=== PATIENT | female | born 1960 | race Caucasian/White ===

== ENCOUNTER → 2016-06-20 | Outpatient (CLI) | payer MEDICAID ==
--- NOTE | 2016-06-21 10:13 | MM ---
Reason for exam: screening (asymptomatic). Last mammogram was performed 8 months ago. History: Patient is postmenopausal and history of other cancer. Took hormonal contraceptives for 10 years beginning at age 20. Physical Findings: A clinical breast exam by your physician is recommended on an annual basis and results should be correlated with mammographic findings. MG 3D Screening Mammo W/Cad Bilateral CC and MLO view(s) were taken. Prior study comparison: October 27, 2015, right breast MG 3d diag mammo w/cad RT. February 11, 2015, bilateral MG screening mammo w CAD. The breast tissue is extremely dense which could obscure a lesion on mammography. Finding: There are typically benign round, linear, grouped/clustered calcifications in the upper outer quadrant, posterior, subareolar position of the left breast and benign round calcifications in the left breast diffusely. There is a chronic nodularity in the right breast. ASSESSMENT: Benign, BI-RAD 2 RECOMMENDATION: Routine screening mammogram of both breasts in 1 year.
== END | disposition home or self-care (01) ==
LOC: RADMAMWWP 11:46
PROVIDERS: ATTEND Obstetrics & Gynecology
DX: Z12.31 Encounter for screening mammogram for malignant neoplasm of breast (principal)
CPT/HCPCS: 77063; G0202

== ENCOUNTER → 2017-07-26 | Outpatient (CLI) | payer MEDICAID ==
--- NOTE | 2017-07-26 14:04 | MM ---
Reason for exam: screening (asymptomatic). Last mammogram was performed 1 year and 1 month ago. History: Patient is postmenopausal and history of other cancer. Took hormonal contraceptives for 10 years beginning at age 20. Physical Findings: A clinical breast exam by your physician is recommended on an annual basis and results should be correlated with mammographic findings. MG Screening Mammo w CAD Bilateral CC and MLO view(s) were taken. Prior study comparison: June 20, 2016, bilateral MG 3d screening mammo w/cad. October 27, 2015, right breast MG 3d diag mammo w/cad RT. The breast tissue is extremely dense which could obscure a lesion on mammography. Finding: There are typically benign round calcifications in both breasts. There is a chronic nodularity in the right breast. There is no discrete abnormality. ASSESSMENT: Benign, BI-RAD 2 RECOMMENDATION: Routine screening mammogram of both breasts in 1 year.
== END | disposition home or self-care (01) ==
LOC: RADMAMWWP 07:35
PROVIDERS: ATTEND Obstetrics & Gynecology
DX: Z12.31 Encounter for screening mammogram for malignant neoplasm of breast (principal)
CPT/HCPCS: 77067

== ENCOUNTER 2018-03-29 07:01 | Day surgery (SDC) | payer MEDICAID ==
[2018-03-27 17:32] VITALS: BMI 28.3
[2018-03-29 07:16] VITALS: TEMP 98.5
[2018-03-29] MEDS: LACTATED RINGERS 1,000 ML IV SCH ×2 (07:27→07:55)
[2018-03-29] MEDS ORDERED: PROPOFOL 10 MG/ML 20 ML VIAL IV ONE (07:56)
[2018-03-29] MEDS ORDERED: LIDOCAINE 1% INJ 10MG/ML (20 ML MDV) ONE (07:56)
--- NOTE | 2018-03-29 08:12 | P.PCN ---
Date of Procedure: 03/29/18 Procedure(s) Performed: BRIEF HISTORY: Patient is a 58-year-old pleasant white female, scheduled for an elective colonoscopy as a part of evaluation of prior history of colon polyps. Last coloscopy was 7 years ago and was noted to have an adenoma. PROCEDURE PERFORMED: Colonoscopy. PREOPERATIVE DIAGNOSIS: History of colon polyps. IV sedation per Anesthesia. PROCEDURE: After informed consent was obtained, the patient, was brought into the endoscopy unit. IV sedation was administered by Anesthesia under continuous monitoring. Digital rectal examination was normal. Initially the Olympus CF- 160 flexible video colonoscope was then inserted in the rectum, gradually advanced into the cecum without any difficulty. Careful examination was performed as the scope was gradually being withdrawn. Ileocecal valve and the appendiceal orifice were visualized and appeared normal. Prep was excellent. Mucosa of the cecum, ascending colon, transverse colon, descending colon, sigmoid colon, and rectum appeared normal. Retroflexion was performed in the rectum and no lesions were seen. The patient tolerated the procedure well. IMPRESSION: Normal-appearing colon from rectum to cecum with no evidence of colorectal neoplasia. RECOMMENDATIONS: Findings of this examination were discussed with the patient as well as her family. She was advised to have a repeat surveillance coloscopy in 5 years..
[2018-03-29 08:34] VITALS: BP 111/77; PULSE 65; RESP 18
== END 2018-03-29 08:51 | disposition home or self-care (01) ==
LOC: ORWHC2ENDO 07:01
PROVIDERS: ATTEND Internal Medicine Gastroenterology
DX: Z12.11 Encounter for screening for malignant neoplasm of colon (principal); Z86.010 Personal history of colon polyps
CPT/HCPCS: J2001; J2704; G0105; 45378

== ENCOUNTER → 2018-10-28 | Outpatient (CLI) | payer MEDICAID ==
--- NOTE | 2018-10-30 08:05 | MM ---
Reason for exam: screening (asymptomatic). Last mammogram was performed 1 year and 3 months ago. History: Patient is postmenopausal and history of other cancer. Took hormonal contraceptives for 10 years beginning at age 20. Physical Findings: A clinical breast exam by your physician is recommended on an annual basis and results should be correlated with mammographic findings. MG 3D Screening Mammo W/Cad Bilateral CC and MLO view(s) were taken. Prior study comparison: July 26, 2017, bilateral MG screening mammo w CAD. June 20, 2016, bilateral MG 3d screening mammo w/cad. The breast tissue is heterogeneously dense. This may lower the sensitivity of mammography. No significant changes when compared with prior studies. ASSESSMENT: Negative, BI-RAD 1 RECOMMENDATION: Routine screening mammogram of both breasts in 1 year.
== END | disposition home or self-care (01) ==
LOC: RADMAMWWP 15:36
PROVIDERS: ATTEND Obstetrics & Gynecology
DX: Z12.31 Encounter for screening mammogram for malignant neoplasm of breast (principal)
CPT/HCPCS: 77063; 77067

== ENCOUNTER → 2019-07-04 | Outpatient (CLI) | payer MEDICAID ==
--- NOTE | 2019-07-04 07:35 | MR ---
EXAMINATION TYPE: MR knee LT wo con DATE OF EXAM: 07/04/2019 COMPARISON: Bilateral knee x-rays July 02, 2019 HISTORY: Left knee pain per order. Pain and locking for palpation worse over last few months. TECHNIQUE: Multiplanar, multisequence images of the knee is performed without IV contrast. FINDINGS: MEDIAL MENISCUS: Posterior horn shows horizontal increased signal image 8 extending centrally to the superior surface. Anterior horn is intact. LATERAL MENISCUS: Anterior horn is intact without tear. There is oblique and slightly globular increa sed signal posterior horn does not extend to articular surface. CRUCIATE LIGAMENTS: The anterior and posterior cruciate ligaments are intact and unremarkable. COLLATERAL LIGAMENTS: The medial collateral ligament and lateral collateral ligament complex are inta ct. Mild fluid signal surrounds medial collateral ligament fibers. EXTENSOR MECHANISM: Visualized quadriceps and patellar tendons are intact. EFFUSION: There is small suprapatellar joint effusion. POPLITEAL CYST: Small to moderate size popliteal/yeager cyst measuring 4.3 cm sagittal image 23. TRICOMPARTMENT SPACES: Moderate to advanced narrowing and spurring patellofemoral compartment. Mild t o moderate spurring medial and lateral tibiofemoral compartments with joint space is fairly well-main tained at these levels. CARTILAGE: Significant chondromalacia patella with marked thinning of the articular cartilage along p osterior patellar pole, areas of full-thickness loss are seen inferiorly. BONE MARROW SIGNAL: Some subchondral cystic change in the central distal femur and small area of bone marrow edema in the central aspect of the tibial plateau. OTHER: No additional significant abnormality is appreciated. IMPRESSION: 1. Moderate to advanced patellofemoral joint arthropathy as detailed above. 2. More mild to moderate degenerative changes medial and lateral tibiofemoral compartments. 3. Small suprapatellar joint effusion. 4. Small to moderate size popliteal cyst. 5. Mild MCL sprain injury. 6. Intrasubstance tear posterior horn of lateral meniscus. 7. Full-thickness horizontal tear posterior horn medial meniscus.
== END | disposition home or self-care (01) ==
LOC: RADMRIMAIN 06:29
PROVIDERS: ATTEND Orthopaedic Surgery
DX: M17.12 Unilateral primary osteoarthritis, left knee (principal); M71.22 Synovial cyst of popliteal space [Baker], left knee; S83.412A Sprain of medial collateral ligament of left knee, initial encounter; S83.282A Other tear of lateral meniscus, current injury, left knee, initial encounter; S83.242A Other tear of medial meniscus, current injury, left knee, initial encounter

== ENCOUNTER → 2019-09-18 | Outpatient (CLI) | payer MEDICAID ==
[2019-09-18 10:14] LABS: Basophils % (A) 1 %; Eosinophils # (A) 0.1 k/uL (0-0.7); Eosinophils % (A) 2 %; HCT 45.7 % (34.0-46.0); HGB 14.5 gm/dL (11.4-16.0); Lymphocytes # (A) 1.8 k/uL (1.0-4.8); Lymphocytes % (A) 23 %; MCH 28.3 pg (25.0-35.0); MCHC 31.8 g/dL (31.0-37.0); MCV 88.8 fL (80.0-100.0); Mean Platelet Volume 7.1; Monocytes # (A) 0.4 k/uL (0-1.0); Monocytes % (A) 5 %; Neutrophils # (A) 5.4 k/uL (1.3-7.7); Neutrophils % (A) 69 %; Platelet Count 336 k/uL (150-450); RBC 5.14 m/uL (3.80-5.40); WBC 7.8 k/uL (3.8-10.6)
[2019-09-18 10:24] LABS: Potassium 4.8 mmol/L (3.5-5.1)
== END | disposition home or self-care (01) ==
LOC: LABPAT 08:33
PROVIDERS: ATTEND Orthopaedic Surgery
DX: Z01.818 Encounter for other preprocedural examination (principal); M23.92 Unspecified internal derangement of left knee
CPT/HCPCS: 80051; 85025; 93005

== ENCOUNTER → 2019-09-25 | Outpatient (CLI) | payer MEDICAID | END | disposition home or self-care (01) | LOC: LABWHC1 13:18 | PROVIDERS: ATTEND Orthopaedic Surgery | DX: Z11.59 Encounter for screening for other viral diseases (principal) ==

== ENCOUNTER 2019-09-29 11:50 | Day surgery (SDC) | payer MEDICAID ==
[2019-09-25 12:09] VITALS: BMI 31.6
--- NOTE | 2019-09-28 15:32 | HP ---
HISTORY AND PHYSICAL REASON FOR ADMISSION: Surgery is scheduled for 09/29/2019. Nishi Powers is a 59-year-old patient seen with progressive left knee pain. We discussed options. She elected to proceed with arthroscopy. Consent was obtained. PAST MEDICAL HISTORY: Noncontributory. SURGICAL HISTORY: Tubal ligation. D and C, bunionectomy, elbow surgery. DAILY MEDICATIONS: None. ALLERGIES: None. SOCIAL HISTORY: Denies tobacco use. PHYSICAL EXAMINATION: Evaluation of the left knee: Range of motion is 0-130. She has a mild effusion. There is tenderness noted along the medial joint line. There is tender along the lateral joint lines. Positive medial Whit's. Positive lateral Whit's. Ligaments stable. Hip rotation without pain. Her distal neurovascular exam is intact. RADIOGRAPHS: Radiographs of the left knee revealed moderate osteoarthritis. An MRI of left knee revealed medial meniscal tear, osteoarthritis, and popliteal cyst. IMPRESSION: 1. Internal derangement, left knee with medial meniscal tear. 2. Left knee osteoarthritis. PLAN: Left knee arthroscopy with partial meniscectomy, partial synovectomy and debridement. Surgery 09/29/2019. MMODL / IJN: [id number] /
[~2019-09-29 11:50] MED LIST: DEXAMETHASONE SOD PHOSPHATE 10 MG/ML 1 ML VIAL IV ONE; LACTATED RINGERS 1,000 ML IV SCH; MIDAZOLAM 2 MG/2 ML VIAL IV PRN; ONDANSETRON 4 MG/2 ML VIAL IVP ONE
[2019-09-29 12:22] VITALS: RESP 16; TEMP 97
[2019-09-29] MEDS ORDERED: SCOPOLAMINE 1.5MG/72HR PATCH TRANSDERM ONE (12:22)
[2019-09-29] MEDS ORDERED: fentaNYL (PF) 50 MCG/ML 2 ML AMP ONE (13:50)
[2019-09-29] MEDS ORDERED: MIDAZOLAM 2 MG/2 ML VIAL ONE (13:50)
[2019-09-29] MEDS ORDERED: PROPOFOL 10 MG/ML 20 ML VIAL IV ONE (13:50)
[2019-09-29] MEDS ORDERED: LIDOCAINE 1% INJ 10MG/ML (20 ML MDV) ONE (13:50)
--- NOTE | 2019-09-29 14:51 | P.OP ---
Date of Procedure: 09/29/19 Preoperative Diagnosis: Internal derangement left knee Postoperative Diagnosis: 1. Tear medial meniscus left knee 2. Grade 4 chondromalacia medial femoral condyle left knee 3. Partial ACL tear left knee 4. Reactive synovitis medial, lateral and suprapatellar compartments left knee Procedure(s) Performed: 1. Arthroscopic partial medial meniscectomy left knee 2. Arthroscopic chondroplasty medial femoral condyle left knee 3. Arthroscopic microfracture medial femoral condyle left knee 4. Arthroscopic debridement partial ACL tear left knee 5. Arthroscopic partial synovectomy medial, lateral and suprapatellar compartments left knee Anesthesia: MACHOA, local Surgeon: Ananda Lee Estimated Blood Loss (ml): 10 Pathology: none sent Condition: stable Disposition: PACU Indications for Procedure: 59-year-old patient seen with progressive left knee pain. After treatment options were discussed, she elected to proceed with arthroscopy. Operative Findings: see description of procedure Description of Procedure: Patient was taken to the operative suite. Patient underwent a general anesthetic by the department of anesthesia. Patient was given preoperative antibiotics. The left lower extremity was placed in a well-padded arthroscopic leg byers. The left leg was prepped and draped in the normal sterile orthopedic fashion. A lateral parapatellar incision was made. Trochars were inserted. Arthroscopy was initiated. Suprapatellar pouch revealed diffuse thick reactive synovitis. The patellofemoral joint appeared to articulate congruently. There was grade 2/3 chondromalacia of both the patella and the femoral sulcus. There was some diffuse thick reactive synovitis throughout the super patellar compartment.. The scope was guided into the medial gutter. No loose bodies or plica were identified. The scope was then guided into the medial compartment. A medial parapatellar incision was made. Trocar inserted followed by probe. There was a posterior horn type tear of the medial meniscus. There were grade 3/4 chondromalacia changes of the medial femoral condyle with some fairly large osteochondral flap tears. There was reactive synovitis anteriorly. I performed a partial medial meniscectomy. I performed a chondroplasty of the medial femoral condyle getting down to stable osteochondral tissue. I performed a partial synovectomy decompressing thick reactive synovitis. There was area of exposed bone weightbearing surface medial femoral condyle measuring 1 cm in diameter. I performed a microfracture in the central portion with area penetrating the bone with resultant bleeding at the microfracture site. The residual osteochondral surface was again probed and found to be stable. Scope and probe were then guided into the intercondylar notch. The ACL was identified and was noted to be stable or less some partial tearing along the lateral side with some of the fibers ending up the lateral compartment. Motorize shaver was introduced and I debrided that down to stable tissue. Residual ACL was stable.. The scope and probe were then guided into lateral compartment. There was some fraying in the midbody area and lateral meniscus. The lateral femoral condyle and tibial plateau were stable. There was some reactive synovitis anteriorly. I debrided the frayed area midbody lateral meniscus motorize shaver. I performed a partial synovectomy decompressing reactive synovitis. Shaver was removed. There was good decompression of the synovitis. The scope was in guided back into the suprapatellar compartment. I introduced a motorized shaver into the super compartment. I debrided some piecemeal fragments of meniscus I encountered. I performed a partial synovectomy decompressing reactive synovitis. The shaver was removed. There was good decompression of synovitis. Instruments were now removed from the joint. The joint was infiltrated with .25% Marcaine. Steri- Strips were applied to the portal sites. Sterile dressings were applied. The patient was placed into a JOSHUA hose. No tourniquet was utilized. The patient was awakened, transferred to a bed and taken to recovery stable satisfactory condition.
[2019-09-29] MEDS: HYDROmorphone 0.5 MG/0.5 ML SYRINGE IVP PRN ×2 (15:06→15:18)
[2019-09-29 15:52] VITALS: BP 123/81; PULSE 71
== END 2019-09-29 16:47 | disposition home or self-care (01) ==
LOC: OR 11:50
PROVIDERS: ATTEND Orthopaedic Surgery
DX: M23.222 Derangement of posterior horn of medial meniscus due to old tear or injury, left knee (principal); M94.262 Chondromalacia, left knee; S83.512A Sprain of anterior cruciate ligament of left knee, initial encounter; M65.862 Other synovitis and tenosynovitis, left lower leg; M22.42 Chondromalacia patellae, left knee; M17.12 Unilateral primary osteoarthritis, left knee; Z98.51 Tubal ligation status; Z98.890 Other specified postprocedural states; Z85.828 Personal history of other malignant neoplasm of skin; Z86.010 Personal history of colon polyps; X58.XXXA Exposure to other specified factors, initial encounter
CPT/HCPCS: 29881; 29879; 29876; J2250; J1100; J2405; J2001; J3010; J2704; J1170

== ENCOUNTER → 2020-01-26 | Outpatient (CLI) | payer MEDICAID ==
[2020-01-26 11:03] LABS: Chol/HDL Ratio 3.46; LDL Cholesterol,Calculated 97.6 mg/dL (0.0-131.0); VLDL Calculation 25.4 mg/dL (5.00-40.00)
== END | disposition home or self-care (01) ==
LOC: LABWHC1 07:42
PROVIDERS: ATTEND Obstetrics & Gynecology
DX: Z00.00 Encounter for general adult medical examination without abnormal findings (principal)
CPT/HCPCS: 36415; 80061; 82947; 84439; 84443

== ENCOUNTER → 2020-02-18 | Outpatient (CLI) | payer MEDICAID ==
--- NOTE | 2020-02-18 22:21 | BD ---
EXAMINATION TYPE: Axial Bone Density DATE OF EXAM: 02/18/2020 COMPARISON: 02/11/2015 CLINICAL HISTORY: Postmenopausal female. Height: 64.5 IN Weight: 189 LBS FRAX RISK QUESTIONS: Family History (Parent hip fracture): YES MOTHER RISK FACTORS HISTORY OF: Family History of Osteoporosis: YES MOTHER Active: YES Postmenopausal woman: AGE 52 EXAM MEASUREMENTS: Bone mineral densitometry was performed using the Valuation App System. Bone mineral density as measured about the Lumbar spine is: ----- L1-L4(G/cm2): 1.092 T Score Values are as follows: ----- L2: -1.6 ----- L3: -0.5 ----- L4: -0.6 ----- L1-L4: -0.7 Bone mineral density has: Increased 1.2% since study of: 02/11/2015 Bone mineral density about the R hip (g/cm2): 0.789 Bone mineral density about the L hip (g/cm2): 0.763 T Score values are as follows: -----R Neck: -1.8 -----L Neck: -2.0 -----R Total: -1.5 -----L Total: -2.0 Bone mineral density has: Decreased -5.5% since study of: 02/11/2015 IMPRESSION: Osteopenia (T Score between -2.5 and -1) remains present. There remains slightly increased risk of fracture and the patient may be considered for treatment. Re-Screen 2-5 years. NOTE: T-SCORE=SD OF THE YOUNG ADULT MEAN.
--- NOTE | 2020-02-23 11:46 | MM ---
Reason for exam: screening (asymptomatic). Last mammogram was performed 1 year and 4 months ago. History: Patient is postmenopausal and history of other cancer. Took hormonal contraceptives for 10 years beginning at age 20. Physical Findings: A clinical breast exam by your physician is recommended on an annual basis and results should be correlated with mammographic findings. MG 3D Screening Mammo W/Cad Bilateral CC and MLO view(s) were taken. Prior study comparison: October 28, 2018, bilateral MG 3d screening mammo w/cad. July 26, 2017, bilateral MG screening mammo w CAD. The breast tissue is heterogeneously dense. This may lower the sensitivity of mammography. There is chronic nodularity in the right breast laterally. Stable grouped calcifications left upper outer quadrant. No significant changes when compared with prior studies. ASSESSMENT: Negative, BI-RAD 1 RECOMMENDATION: Routine screening mammogram of both breasts in 1 year.
== END | disposition home or self-care (01) ==
LOC: RADMAMWWP 06:54
PROVIDERS: ATTEND Obstetrics & Gynecology
DX: Z12.31 Encounter for screening mammogram for malignant neoplasm of breast (principal); M85.80 Other specified disorders of bone density and structure, unspecified site; Z78.0 Asymptomatic menopausal state
CPT/HCPCS: 77063; 77067; 77080

== ENCOUNTER → 2021-02-28 | Outpatient (CLI) | payer MEDICAID ==
--- NOTE | 2021-03-01 09:55 | MM ---
Reason for exam: screening (asymptomatic). Last mammogram was performed 1 year ago. History: Patient is postmenopausal and history of other cancer. Took hormonal contraceptives for 10 years beginning at age 20. Physical Findings: A clinical breast exam by your physician is recommended on an annual basis and results should be correlated with mammographic findings. MG 3D Screening Mammo W/Cad Bilateral CC and MLO view(s) were taken. Prior study comparison: February 18, 2020, bilateral MG 3d screening mammo w/cad. October 28, 2018, bilateral MG 3d screening mammo w/cad. The breast tissue is heterogeneously dense. This may lower the sensitivity of mammography. There are benign appearing round calcifications bilaterally. There is no discrete abnormality. ASSESSMENT: Benign, BI-RAD 2 RECOMMENDATION: Routine screening mammogram of both breasts in 1 year.
== END | disposition home or self-care (01) ==
LOC: RADMAMWWP 08:45
PROVIDERS: ATTEND Obstetrics & Gynecology
DX: Z12.31 Encounter for screening mammogram for malignant neoplasm of breast (principal)
CPT/HCPCS: 77063; 77067

== ENCOUNTER → 2022-04-07 | Outpatient (CLI) | payer MEDICAID ==
--- NOTE | 2022-04-10 08:27 | MM ---
Reason for Exam: Screening (asymptomatic). Last mammogram was performed 1 year(s) and 1 month(s) ago. Patient History: Menarche at age 11. First Full-Term at age 28. Postmenopausal. Other cancer. Hormonal Contraceptives, starting at age 20 for 10 years. Risk Values: Jaymie 5 year model risk: 1.9%. NCI Lifetime model risk: 8.4%. Prior Study Comparison: 10/28/2018 Bilateral Screening Mammogram, [facility]. 02/18/2020 Bilateral Screening Mammogram, [facility]. 02/28/2021 Bilateral Screening Mammogram, [facility]. Tissue Density: The breast tissue is heterogeneously dense. This may lower the sensitivity of mammography. Findings: Analyzed By CAD. Asymmetric density upper outer left breast. Scattered benign calcifications noted. Overall Assessment: Incomplete: need additional imaging evaluation, BI-RAD 0 Management: Diagnostic Mammogram of the left breast. A clinical breast exam by your physician is recommended on an annual basis and results should be correlated with mammographic findings. Electronically signed and approved by: Williams Mckinnon M.D. Radiologis
== END | disposition home or self-care (01) ==
LOC: RADMAMWWP 16:20
PROVIDERS: ATTEND Obstetrics & Gynecology
DX: Z12.31 Encounter for screening mammogram for malignant neoplasm of breast (principal); Z78.0 Asymptomatic menopausal state
CPT/HCPCS: 77063; 77067

== ENCOUNTER → 2022-04-14 | Outpatient (CLI) | payer MEDICAID ==
--- NOTE | 2022-04-14 14:34 | MM ---
Reason for Exam: Additional evaluation requested from abnormal screening. Last screening mammogram was performed less than 1 month ago. Patient History: Menarche at age 11. First Full-Term at age 28. Postmenopausal. Other cancer. Hormonal Contraceptives, starting at age 20 for 10 years. Risk Values: Jaymie 5 year model risk: 1.9%. NCI Lifetime model risk: 8.4%. Prior Study Comparison: 02/18/2020 Bilateral Screening Mammogram, [facility]. 02/28/2021 Bilateral Screening Mammogram, [facility]. 04/07/2022 Bilateral MG 3D screening mammo w/cad, [facility]. Tissue Density: Left: The breast tissue is heterogeneously dense. This may lower the sensitivity of mammography. Findings: Analyzed By CAD. No distinct new lesion persists at area of clinical concern upper outer aspect left breast. Overall Assessment: Negative, BI-RAD 1 Management: Screening Mammogram of both breasts in 1 year. Back on bilaterally annual schedule.. Results were given to the patient verbally at the time of exam. Electronically signed and approved by: Juan Boothe M.D.
== END | disposition home or self-care (01) ==
LOC: RADMAMWWP 14:09
PROVIDERS: ATTEND Obstetrics & Gynecology
DX: R92.8 Other abnormal and inconclusive findings on diagnostic imaging of breast (principal); Z78.0 Asymptomatic menopausal state
CPT/HCPCS: 77061; 77065

== ENCOUNTER → 2023-04-09 | Outpatient (CLI) | payer MEDICAID ==
[2023-04-09 11:05] LABS: HCT 47.2 % (37.2-46.3); HGB 15.4 g/dL (12.0-15.0); MCH 28.5 pg (27.0-32.0); MCHC 32.6 g/dL (32.0-37.0); MCV 87.2 FL (80.0-97.0); Mean Platelet Volume 9.8 FL (9.5-12.2); NRBC Per 100 WBC 0 X 10*3/uL (0.00-0.01); Platelet Count 299 X 10*3/uL (140-440); RBC 5.41 X 10*6/uL (4.10-5.20); WBC 8.84 X 10*3/uL (4.50-10.00)
[2023-04-09 11:16] LABS: Chol/HDL Ratio 3.06 Ratio; T4, Free (Free Thyroxine) 1.23 ng/dL (0.80-1.80); VLDL Calculation 16.42 mg/dL (5.00-40.00)
== END | disposition home or self-care (01) ==
LOC: LABWHC1 06:58
PROVIDERS: ATTEND Obstetrics & Gynecology
DX: Z83.438 Family history of other disorder of lipoprotein metabolism and other lipidemia (principal); Z13.0 Encounter for screening for diseases of the blood and blood-forming organs and certain disorders involving the immune mechanism; E07.9 Disorder of thyroid, unspecified
CPT/HCPCS: 36415; 80061; 83036; 84439; 84443; 85027

== ENCOUNTER 2023-04-13 06:05 | Day surgery (SDC) | payer MEDICAID ==
[2023-04-02 14:23] VITALS: BMI 29.0
[~2023-04-13 06:05] MED LIST changes: -DEXAMETHASONE SOD PHOSPHATE 10 MG/ML 1 ML VIAL IV ONE; +LIDOCAINE 1% (10MG/ML) FOR IV START INTRADERMA PRN; -MIDAZOLAM 2 MG/2 ML VIAL IV PRN; -ONDANSETRON 4 MG/2 ML VIAL IVP ONE
[2023-04-13 06:46] VITALS: RESP 16; TEMP 97.6
[2023-04-13] MEDS ORDERED: PROPOFOL 10 MG/ML 20 ML VIAL IV ONE (07:03)
[2023-04-13] MEDS ORDERED: LIDOCAINE 1% INJ 10MG/ML (20 ML MDV) ONE (07:03)
[2023-04-13] MEDS ORDERED: LACTATED RINGERS 1,000 ML IV ONE (07:20)
[2023-04-13 07:36] VITALS: BP 115/76; PULSE 74
--- NOTE | 2023-04-13 08:03 | P.PCN ---
Date of Procedure: 04/13/23 Procedure(s) Performed: BRIEF HISTORY: Patient is a 63-year-old pleasant white female scheduled for an elective colonoscopy as a part of evaluation of prior history of colon polyps. Her last colonoscopy was 5 years ago. PROCEDURE PERFORMED: Colonoscopy with cold snare polypectomy. PREOPERATIVE DIAGNOSIS: History of colon polyps. IV sedation per Anesthesia. PROCEDURE: After informed consent was obtained, the patient, was brought into the endoscopy unit. IV sedation was administered by Anesthesia under continuous monitoring. Digital rectal examination was normal. Initially the Olympus CF-160 flexible video colonoscope was then inserted in the rectum, gradually advanced into the cecum without any difficulty. Careful examination was performed as the scope was gradually being withdrawn. Ileocecal valve and the appendiceal orifice were visualized and appeared normal. Prep was excellent. Mucosa of the cecum, ascending colon, appeared normal. In the hepatic flexure there was a 6 minute meter polyp that was removed by cold snare polypectomy. Rest of the transverse colon, descending colon, sigmoid colon, and rectum appeared normal. Retroflexion was performed in the rectum and no lesions were seen. The patient tolerated the procedure well. IMPRESSION: 6 mm hepatic flexure polyp status post cold snare polypectomy Rest of the colon appeared normal RECOMMENDATIONS: Findings of this examination were discussed with the patient as well as a family. She was advised to follow with the biopsy results. If the biopsy results adenoma she can have a repeat colonoscopy in 5 years.
== END 2023-04-13 08:03 | disposition home or self-care (01) ==
LOC: ORWHC2ENDO 06:05
PROVIDERS: ATTEND Internal Medicine Gastroenterology
DX: Z12.11 Encounter for screening for malignant neoplasm of colon (principal); D12.3 Benign neoplasm of transverse colon; M19.90 Unspecified osteoarthritis, unspecified site; Z85.828 Personal history of other malignant neoplasm of skin; Z86.010 Personal history of colon polyps
CPT/HCPCS: 88305; 45385; J2001; J2704

== ENCOUNTER → 2023-05-07 | Outpatient (CLI) | payer MEDICAID ==
--- NOTE | 2023-05-08 18:33 | MM ---
Reason for Exam: Screening (asymptomatic). Last mammogram was performed 1 year(s) and 1 month(s) ago. Patient History: Menarche at age 11. First Full-Term at age 28. Postmenopausal. Other cancer. Hormonal Contraceptives, starting at age 20 for 10 years. Risk Values: Jaymie 5 year model risk: 1.9%. NCI Lifetime model risk: 8.1%. Prior Study Comparison: 02/28/2021 Bilateral Screening Mammogram, [facility]. 04/07/2022 Bilateral MG 3D screening mammo w/cad, [facility]. 04/14/2022 Left MG 3D work up w/cad , [facility]. Tissue Density: The breast tissue is heterogeneously dense. This may lower the sensitivity of mammography. Findings: Analyzed By CAD. Pattern appears symmetrical and stable. Benign calcification is within the bilateral breasts. No significant interval changes are evident. No suspicious groups of microcalcifications, spiculated or lobular masses, architectural distortion or other secondary signs of malignancy are mammographically apparent. Overall Assessment: Benign, BI-RAD 2 Management: Screening Mammogram of both breasts in 1 year. A negative mammogram report should not preclude additional follow up of suspicious palpable abnormalities. Patient should continue monthly self breast exam. A clinical breast exam by your physician is recommended on an annual basis and results should be correlated with mammographic findings. Electronically signed and approved by: Tulio Cruz D.O. Radiologis
== END | disposition home or self-care (01) ==
LOC: RADMAMWWP 15:46
PROVIDERS: ATTEND Obstetrics & Gynecology
DX: Z12.31 Encounter for screening mammogram for malignant neoplasm of breast (principal); Z78.0 Asymptomatic menopausal state
CPT/HCPCS: 77063; 77067

== ENCOUNTER → 2023-12-17 | Outpatient (CLI) | payer MEDICAID | END | disposition home or self-care (01) | LOC: LABPRL 12:34 | PROVIDERS: ATTEND Orthopaedic Surgery | DX: M17.12 Unilateral primary osteoarthritis, left knee (principal) | CPT/HCPCS: 87070 ==

== ENCOUNTER 2024-01-07 05:45 | Day surgery (SDC) | payer MEDICAID ==
[2024-01-02 14:27] VITALS: BMI 28.8
--- NOTE | 2024-01-06 12:55 | HP ---
HISTORY AND PHYSICAL DATE OF SCHEDULED SURGERY: 01/07/2024. HISTORY OF PRESENT ILLNESS: Nishi Powers is a 63-year-old patient, seen with symptomatic left knee osteoarthritis. We discussed options regarding treatment. She elected to proceed with left total knee arthroplasty. Consent regarding the procedure was obtained. PAST MEDICAL HISTORY: Noncontributory. PAST SURGICAL HISTORY: Tubal ligation, bunionectomy, knee arthroscopy, and excision of skin lesion. DAILY MEDICATIONS: 1. Motrin. 2. Tylenol. ALLERGIES: None reported. SOCIAL HISTORY: She denies tobacco use. PHYSICAL EVALUATION OF THE LEFT KNEE: Range of motion is negative 2 to 120 degrees. Mild effusion. Tenderness to medial joint line. Crepitance along the medial patellofemoral compartments with range of motion. Pain with patellofemoral compression. Ligaments stable. Hip rotation without pain. Distal neurovascular exam is intact. IMAGING: Left knee radiographs reveal severe osteoarthritic changes. IMPRESSION: Left knee osteoarthritis. PLAN: Left total knee arthroplasty. MMODL / IJN: [id number] /
[~2024-01-07 05:45] MED LIST changes: -LACTATED RINGERS 1,000 ML IV SCH; -LIDOCAINE 1% (10MG/ML) FOR IV START INTRADERMA PRN; +TRANEXAMIC 1,000 MG/100ML-NACL 1,000 MG in SALINE 1 100ML.BAG IVPB PRN
[2024-01-07] MEDS: ACETAMINOPHEN TAB 500 MG TAB PO PRN (06:53)
[2024-01-07] MEDS: MELOXICAM 7.5 MG TAB PO PRN (06:53)
[2024-01-07] MEDS: DEXAMETHASONE SOD PHOSPHATE 4 MG/ML 1 ML VIAL IV ONE (06:54)
[2024-01-07] MEDS: SCOPOLAMINE 1 MG/72 HR PATCH TRANSDERM ONE (06:54)
[2024-01-07] MEDS: ONDANSETRON 4 MG/2 ML VIAL IVP ONE (06:54)
[2024-01-07] MEDS: MIDAZOLAM 2 MG/2 ML VIAL IV PRN (06:56)
[2024-01-07] MEDS: IV FLUID CONTINUATION 1,000 ML IV ONE (06:56)
[2024-01-07] MEDS ORDERED: PROPOFOL 10 MG/ML 20 ML VIAL IV ONE (07:25)
[2024-01-07] MEDS ORDERED: SODIUM CHLORIDE 0.9% (PF) 10 ML VIAL ONE (07:25)
[2024-01-07] MEDS ORDERED: SUCCINYLCHOLINE CHLORIDE 200 MG/10 ML VIAL IV ONE (07:25)
[2024-01-07] MEDS ORDERED: TRANEXAMIC 1,000 MG/100ML-NACL PREMIX BAG ONE (07:25)
[2024-01-07] MEDS ORDERED: ePHEDrine 50 MG/ML 1 ML VIAL ONE (07:25)
[2024-01-07] MEDS ORDERED: MIDAZOLAM 2 MG/2 ML VIAL ONE (07:25)
[2024-01-07] MEDS ORDERED: DEXAMETHASONE SOD PHOSPHATE 4 MG/ML 1 ML VIAL ONE (07:25)
[2024-01-07] MEDS ORDERED: fentaNYL (PF) 50 MCG/ML 2 ML AMP ONE (07:25)
[2024-01-07] MEDS ORDERED: HYDROmorphone (PF) 1 MG/ML ONE (07:25)
[2024-01-07] MEDS ORDERED: ROPIVACAINE 5 MG/ML 30 ML VIAL ONE (07:25)
[2024-01-07] MEDS ORDERED: LIDOCAINE 1% INJ 10MG/ML (20 ML MDV) ONE (07:25)
[2024-01-07] MEDS ORDERED: PHENYLEPHRINE 10 MG/ML VIAL ONE (07:25)
--- NOTE | 2024-01-07 07:28 | P.ANPRN ---
Procedure Note - Anesthesia - Nerve Block Performed Left Adductor Canal Infusion Time Out Performed: Yes Date of Procedure: 01/07/24 Procedure Start Time: 06:56 Procedure Stop Time: 07:03 Location of Patient: PreOp Indication: Acute Post-Operative Pain, Requested by Surgeon Sedation Type: Sedate with meaningful contact maintained Preparation: Sterile Prep, Sterile Dressing Position: Supine Catheter: Indwelling Needle Types: Pajunk Needle Gauge: 18 Ultrasound used to visualize needle placement: Yes Ultrasound used to observe medication spread: Yes Injectate: 0.5% Ropivacaine (see comment for volume) (20 ml + 10 ml NS + 4 mg Dexamethasone) Blood Aspirated: No Pain Paresthesia on Injection Noted: No Resistance on Injection: Normal Image Stored and Saved: Yes Events: Uneventful and Well Tolerated
--- NOTE | 2024-01-07 07:29 | P.ANPRN ---
Procedure Note - Anesthesia - Nerve Block Performed Left iPack Single Time Out Performed: Yes Date of Procedure: 01/07/24 Procedure Start Time: 07:04 Procedure Stop Time: 07:15 Location of Patient: PreOp Indication: Acute Post-Operative Pain, Requested by Surgeon Sedation Type: Sedate with meaningful contact maintained Preparation: Sterile Prep Position: Right Lateral Needle Types: Pajunk Needle Gauge: 21 Ultrasound used to visualize needle placement: Yes Ultrasound used to observe medication spread: Yes Injectate: 0.5% Ropivacaine (see comment for volume) (20 ml + 10 ml NS + 4 mg Dexamethasone) Blood Aspirated: No Pain Paresthesia on Injection Noted: No Resistance on Injection: Normal Image Stored and Saved: Yes Events: Uneventful and Well Tolerated
[2024-01-07] MEDS: ceFAZolin 1,000 MG in SODIUM CHLORIDE 0.9% 1,000 ML IRRIGATION ONE (07:50)
[2024-01-07] MEDS: LACTATED RINGERS 1,000 ML IV ONE ×2 (08:27→23:04)
[2024-01-07] MEDS ORDERED: HYDROmorphone 0.5 MG/0.5 ML SYRINGE IVP PRN ×2 (09:02)
[2024-01-07] MEDS ORDERED: HYDROcodone/APAP 7.5-325MG 1 EACH TAB PO PRN (09:02)
[2024-01-07] MEDS ORDERED: HYDROmorphone 1 MG/ML 1 ML SYRINGE IVP PRN (09:02)
[2024-01-07] MEDS ORDERED: NALOXONE 0.4 MG/ML 1 ML VIAL IV PRN (09:02)
--- NOTE | 2024-01-07 09:02 | P.OP ---
Date of Procedure: 01/07/24 Preoperative Diagnosis: Left knee osteoarthritis Postoperative Diagnosis: Left knee osteoarthritis Procedure(s) Performed: Left total knee arthroplasty Implants: 1. DePuy attune size 5 narrow left cruciate retaining cemented femur 2. DePuy attune size 4 fixed-bearing cemented tibial baseplate 3. DePuy attune size 5 fixed-bearing cruciate retaining 6 mm polyethylene tibial insert 4. DePuy attune 35 mm all polyethylene cemented patella Anesthesia: GETA, regional (Adductor canal catheter, iPAQ block) Surgeon: Ananda Lee Gill Box Fixer #1: Rafy Omalley Estimated Blood Loss (ml): 40 Pathology: none sent Condition: stable Disposition: PACU Indications for Procedure: 63-year-old patient seen with symptomatic left knee osteoarthritis. After having treatment options discussed, she elected to proceed with left total knee arthroplasty. Operative Findings: See description of procedure Description of Procedure: Patient was taken to the operative suite after having an adductor canal catheter placed by the department of anesthesia. Patient underwent a general anesthetic by the department of anesthesia. Patient was given preoperative IV intake antibiotics and TXA. A well-padded tourniquet was placed about the left lower extremity. The lower extremity was then prepped and draped in the normal sterile orthopedic fashion. The extremity was elevated, a tourniquet was insufflated to 300. A standard anterior incision was made sharply through skin. Dissection was taken down through the subcutaneous soft tissues down to the extensor mechanism. A medial arthrotomy was performed, patella was everted and knee was flexed. There was advanced osteoarthritis noted. I introduced my distal intramedullary femoral drill. I then introduced the distal femoral c utting jig. Teo BRIZUELA secured the cutting jig with 2 pins. I held retractors in position while Teo BRIZUELA performed the distal femoral resection through the guide area we now removed her distal femoral cutting guide. We now placed our 4-in-1 femoral cutting block and positioned and it was secured with 2 pins by Teo BRIZUELA while I held the block in position. The distal femoral finishing was now completed. A proximal tibial cutting guide was positioned. I held the guide in the appropriate position with both hands well Teo BRIZUELA inserted stabilizing pins into the guide. Proximal tibial cut was made. We now placed a trial femoral component into position, along with an appropriate size tibial tray and insert. We now took the knee through range of motion and had full extension good flexion and good overall soft tissue balance noted. The patella was everted and stabilized with 2 towel clips held by Teo BRIZUELA while I performed a flush with patellar quad tendon utilizing a fresh sawblade. We templated the patella, appropriate drill holes were made. An appropriate trial patella was positioned, knee was taken through full range of motion with the patella tracking very nicely. The trial patella was removed. Drill holes were made through the femoral component. All trial components were removed after marking off the appropriate rotation of the tibia. Retractors were now positioned along the proximal tibia. An appropriate keel punch was made with the appropriate size tibial guide by myself on Teo BRIZUELA assisted by holding retractors. At this point appropriate size implants were chosen and opened. The joint was irrigated copiously with pulse lavage mechanical irrigation. The wound was irrigated with pulse lavage mechanical irrigation. We mixed antibiotic methylmethacrylate. We placed the knee into flexion. We placed multiple retractors assisted by Teo BRIZUELA to expose the proximal tibia. Once the methyl methacrylate was ready, the tibial component was cemented into place removing any excess methylmethacrylate form by both myself and Teo BRIZUELA. The femoral component was cemented into place removing the removing any excess methylmethacrylate performed by both myself and Teo BRIZUELA. We then inserted the appropriate size polyethylene tibial insert. We made sure that it was locked into position. We took the knee into full extension, and then back in a flexion making sure we had removed any excess methylmethacrylate. The patellar component was then cemented down and secured with clamp. Excess methylmethacrylate removed. We kept the knee in full extension, patellar clamp in position until methylmethacrylate had hardened. Once it had hardened the patellar clamp was removed. The knee was taken through full range of motion. The patella tracked nicely. There was good soft tissue balancing. The tourniquet was now released. Additional hemostasis was achieved via electrocautery. A second gram of TXA was given. The wound again was irrigated with pulse lavage mechanical irrigation. The extensor mechanism was repaired with Ethibond suture. We checked the repair with range of motion and it was stable. The subcutaneous soft tissues were repaired with Vicryl in layers. The skin was approximated with pernio/Dermabond. Sterile dressings were applied followed by loose web roll and Loyd bandage. The patient was transferred to a bed, and taken to recovery in stable and satisfactory condition. Teo BRIZUELA assisted with this complex procedure.
[2024-01-07] MEDS: HYDROmorphone 0.5 MG/0.5 ML SYRINGE IVP PRN (09:52)
[2024-01-07] MEDS: ROPIVACAINE 1,100 MG, SODIUM CHLORIDE 0.9% 500 ML 330 ML, EMPTY PAIN BALL 1 EACH MISCELLANE PRN (12:00)
--- NOTE | 2024-01-07 13:29 | XR ---
EXAMINATION TYPE: XR knee limited LT DATE OF EXAM: 01/07/2024 1:13 PM CLINICAL INDICATION: Female, 63 years old with history of Evaluation for Postop abnormality and align ment; [facility] COMPARISON: None. TECHNIQUE: XR knee limited LT; examined in Frontal, lateral projections. FINDINGS: Status post total knee arthroplasty changes with hardware in appropriate alignment and in tact. No evidence of fracture. Subcutaneous lucencies and lucencies within the joint consistent with surgical changes. IMPRESSION: Status post total knee arthroplasty changes with hardware intact and appropriate alignment. No fractu res identified.
[2024-01-07] MEDS: LACTATED RINGERS 1,000 ML IV SCH (16:46)
[2024-01-07] MEDS: ONDANSETRON 4 MG/2 ML VIAL IVP PRN (17:16)
[2024-01-08] MEDS: HYDROcodone/APAP 5-325MG 1 EACH TAB PO PRN (07:33)
--- NOTE | 2024-01-08 08:29 | P.PN ---
Progress Note - Text Progress Note Date: 01/08/24 Postoperative day # 1 status post total knee arthroplasty, and adductor canal catheter placed for postoperative analgesia, currently at ropivacaine 0.2% 8 mL per hour and continuous infusion, visual analogue scale is 3/10, patient using oral pain medication for breakthrough pain. Assessment and plan= Acute postoperative pain, adductor canal catheter for pain control, pain is well controlled we'll continue the same management.
[2024-01-08 08:32] VITALS: RESP 16
--- NOTE | 2024-01-08 10:35 | P.PN ---
Subjective Progress Note Date: 01/08/24 Principal diagnosis: Status post left total knee arthroplasty Patient evaluated at bedside, she is resting in her hospital bed. Patient did attempt to work with therapy today, she became very nauseous, she had received a Tilden just prior to it. There is still waiting on delivery of the On-Q pain catheter ball, she is hooked up to the IV form of this at this time. She is having very minimal discomfort at this time. She denies any headaches, lightheadedness, chest pain or shortness of breath Objective - Vital Signs Vital signs: Vital Signs Temp 98.2 F 01/08/24 08:00 Pulse 81 01/08/24 08:00 Resp 16 01/08/24 08:00 BP 105/68 01/08/24 08:00 Pulse Ox 96 01/08/24 08:00 FiO2 Intake & Output 01/07/24 01/08/24 01/08/24 18:59 06:59 18:59 Intake Total 1751 Output Total 40 Balance 1711 Weight 75.6 kg Intake: IV 1751 Output: Estimated Blood Loss 40 Other: Voiding Method Bedside Commode Bedside Commode # Voids 1 - Exam Left lower extremity: Incision is clean, dry, and intact. The foam dressing is in good condition. There is minimal soft tissue swelling and ecchymosis surrounding the medial and lateral aspects of the incision. Calf is soft, no tenderness with palpation. Plantar flexion, dorsiflexion, EHL, FHL are intact. Sensory exam to light touch throughout the extremity is intact, dorsal pedis pulses 2+. Assessment and Plan Assessment: Postoperative day #1 status post left total knee arthroplasty Postop nausea Plan: Pain control, did discuss with nursing we will try Percocet 5 mg / 325 mg versed and Tilden. Continue to use Zofran as needed. DVT prophylaxis, continue current medication Encourage incentive spirometer Icing and elevating techniques discussed PT/OT Medical recommendations appreciated Discharge planning: Discussed with nursing if patient improves this afternoon we may discharge versus keeping patient in hospital overnight to work on nausea Time with Patient: Less than 30
[2024-01-08] MEDS: oxyCODONE-APAP 5-325MG 1 EACH TAB PO PRN (13:48)
[2024-01-08 14:55] VITALS: BP 124/77; PULSE 63; TEMP 98.6
--- NOTE | 2024-01-10 09:29 | P.DS ---
Providers Date of admission: 01/07/2024 Expected date of discharge: 01/08/24 Attending physician: Ananda Lee Primary care physician: Stated None Hospital Course: Date of admission: 01/07/2024 Date of discharge: 01/08/2024 Admission diagnosis: Status post left total knee arthroplasty Discharge diagnosis: Same Attending physician: Dr. Lee Surgical procedures: Left total knee arthroplasty Brief history: Patient is a 63-year-old female with a history of progressive primary left knee osteoarthritis. At this point patient has failed conservative treatment measures and has opted to proceed with a elective left total knee arth roplasty. Hospital course: Details of patient's surgery can be found in operative report. Patient tolerated the procedure well and was subsequently transported to orthopedic floor. Patient's orthopeidc and medical care was provided daily. Patient had daily laboratory tests performed for evaluation of overall blood counts. Patient had daily physical therapy to include strengthening range of motion as well as education with walker ambulation. Patient was treated with aspirin for their postoperative DVT prophylaxis during their inpatient stay. Patient was noted to have a relatively uneventful postoperative course. Patient reported satisfactory pain control with oral pain medications by postoperative day 1. Patient showed satisfactory progress with physical therapy. Patient moved steadily through the program and had no difficulty meeting the goals by postoperative day 1. Given patient's otherwise satisfactory course and having met physical therapy goals, plan is to discharge patient home on postoperative day 1. Discharge condition/disposition: Patient will be discharged home in stable condition. Discharge medications: Instructions are given on resumption of patient's normal daily medications per primary care recommendation, in addition patient will be prescribed Percocet 5 mg / 325 mg, Zofran 8 mg, aspirin 81 mg. Discharge instructions: 1. Wound care and infection precautions, keep incision dry and covered while showering, no lotions, creams, moisturizers. No soaking, tubs, pools, hottubs. Do not scrub over the incision. 2. Weight-bear as tolerated with walker / cane until follow-up. 3. Ice and elevate when necessary. Do not exceed 20 minutes per hour with ice pack. 4. Utilize compression sleeve until seen at first follow up appointment. 5. Visiting nursing care. 6. Home physical therapy including home CPM. 7. Pain meds and anticoagulants per prescription. 8. Pain medication has potential to cause constipation. Increase oral fluid and fiber intake. Contact primary care provider if you have not had a bowel movement within 48 hours after discharge 9. No anti-inflammatory medication until discussed at first post operative visit, this including Motrin, Aleve, Mobic, Diclofenac. 10. Follow up in office at 2 weeks postop with Teo Omalley PA-C/Nazario Dooley 11. Follow up with your primary care doctor 7-10 days after discharge. 12. Contact [facility] with any questions, . Procedures: Left total knee arthroplasty Patient Condition at Discharge: Good Plan - Discharge Summary Discharge Rx Participant: Yes New Discharge Prescriptions: New ondansetron HCL [Zofran] 8 mg PO Q8HR PRN #21 tab PRN Reason: Nausea Aspirin [Adult Low Dose Aspirin EC] 81 mg PO BID #60 tab oxyCODONE-APAP 5-325MG [Percocet 5-325 mg] 1 tab PO Q6HR PRN #28 tab PRN Reason: Pain No Action Acetaminophen [Tylenol Extra Strength] 500 - 1,000 mg PO DAILY PRN PRN Reason: Pain Discharge Medication List Acetaminophen [Tylenol Extra Strength] 500 - 1,000 mg PO DAILY PRN 01/02/24 [History] Aspirin [Adult Low Dose Aspirin EC] 81 mg PO BID #60 tab 01/08/24 [Rx] ondansetron HCL [Zofran] 8 mg PO Q8HR PRN #21 tab 01/08/24 [Rx] oxyCODONE-APAP 5-325MG [Percocet 5-325 mg] 1 tab PO Q6HR PRN #28 tab 01/08/24 [Rx] Follow up Appointment(s)/Referral(s): [facility] [NON-STAFF] - As Needed ([facility] - CPM- Patient to call day when arrives home to set up delivery to home. any questions please call agency. ) [facility], [NON-STAFF] - 1-2 Days ([facility] will call to set up appointment for home care. Any questions please call agency. ) Rafy Omalley PAC [PHYSICIAN SPORTS PHYSIOTHERAPIST] - 01/23/24 2:00 pm Patient Instructions/Handouts: *Surgery [facility] - On-Q Pain Pump Discharge Instru ctions, *[facility] - (Anesthesia) Discharge Instructions Outpatient Surgery, Precautions after Total Joint Replacement Surgery (DC), Knee Replacement (DC) Activity/Diet/Wound Care/Special Instructions: Orthopedic Discharge Instructions: 1. Wound care and infection precautions, keep incision dry and covered while showering, no lotions, creams, moisturizers. No soaking, pools, hot tubs. Do not scrub over incision. 2. Weight-bear as tolerated with walker / cane until follow-up. 3. Ice and elevate when necessary. Do not exceed 20 minutes per hour with ice pack. 4. Utilize compression sleeve until seen at first follow up appointment. 5. Pain meds and anticoagulants per prescription. 6. Pain medication has potential to cause constipation. Increase oral fluid and fiber intake. Contact primary care provider if you have not had a bowel movement within 48 hours after discharge. 7. No anti-inflammatory medication until discussed at first post operative visit, this including Motrin, Aleve, Mobic, Diclofenac. 8. Follow up in office at 2 weeks postop with Teo Omalley PA-C/Nazario Garg PA-C 9. Follow up with your primary care doctor 7-10 days after discharge. 10. Contact [facility] with any questions, . Wound care instructions: 1. Okay to remove surgical dressing as of 01/14/2024 2. Okay to shower over incision after removal of dressing with antibacterial soap Discharge Disposition: HOME WITH HOME HEALTH SERVICES
== END 2024-01-08 18:16 | disposition home health service (06) ==
LOC: OR 05:45 → 4SSUR 09:14 → OR 01-08 18:16
PROVIDERS: ATTEND Orthopaedic Surgery
DX: M17.12 Unilateral primary osteoarthritis, left knee (principal); G89.18 Other acute postprocedural pain; Z98.51 Tubal ligation status; Z96.652 Presence of left artificial knee joint; Z85.828 Personal history of other malignant neoplasm of skin; Z86.010 Personal history of colon polyps; Z79.1 Long term (current) use of non-steroidal anti-inflammatories (NSAID)
CPT/HCPCS: 64448; 64999

== ENCOUNTER 2024-05-02 10:50 | Emergency (ER) | payer MEDICAID ==
--- NOTE | 2024-05-02 11:06 | ED ---
Extremity Problem HPI <Beverley Munson - Last Filed: 05/02/24 11:05> - General Source: patient, RN notes reviewed Mode of arrival: ambulatory Limitations: no limitations - History of Present Illness MD Complaint: extremity pain, extremity swelling <Darcy Holt - Last Filed: 05/02/24 16:44> - General Chief complaint: Extremity Injury, Upper Stated complaint: Fall, left wrist injury Time Seen by Provider: 05/02/24 11:05 - History of Present Illness Initial comments: Quick [id number] female presenting for left wrist injury 2 hours ago. States she was walking her dogs when she slipped on ice and fell on an outstretched left hand. No other injuries. (Beverley Munson) This is a 64-year-old female who presents to the emergency department for left wrist pain. Patient was walking her dogs this morning when she slipped on the ice and fell, injuring her left wrist. Denies hitting her head or sustaining any other injuries. Not taking any blood thinners. She has had difficulty moving the wrist due to the pain. (Darcy Holt) - Related Data Home Medications Medication Instructions Recorded Confirmed Acetaminophen [Tylenol Extra 500 - 1,000 mg PO DAILY PRN 01/02/24 01/07/24 Strength] Previous Rx's Medication Instructions Recorded Aspirin [Adult Low Dose Aspirin EC] 81 mg PO BID #60 tab 01/08/24 ondansetron HCL [Zofran] 8 mg PO Q8HR PRN #21 tab 01/08/24 oxyCODONE-APAP 5-325MG [Percocet 1 tab PO Q6HR PRN #28 tab 01/08/24 5-325 mg] HYDROcodone/APAP 7.5-325MG [[place]ie 1 tab PO Q6HR PRN 3 Days #12 tab 05/02/24 7.5-325] Ibuprofen [Motrin] 800 mg PO Q8H PRN #30 tab 05/02/24 Allergies Allergy/AdvReac Type Severity Reaction Status Date / Time No Known Allergies Allergy Verified 05/02/24 12:29 Review of Systems ROS Other: All systems not noted in ROS Statement are negative. <Beverley Munson - Last Filed: 05/02/24 11:05> ROS Other: All systems not noted in ROS Statement are negative. <Darcy Holt - Last Filed: 05/02/24 16:44> ROS Statement: Those systems with pertinent positive or pertinent negative responses have been documented in the HPI. Past Medical History Past Medical History: Cancer, Osteoarthritis (OA) Additional Past Medical History / Comment(s): BASAL CELL SKIN CANCER., HX OF COLON POLYP. History of Any Multi-Drug Resistant Organisms: None Reported Past Surgical History: Orthopedic Surgery, Tubal Ligation Additional Past Surgical History / Comment(s): D & C X2, RIGHT BUNIONECTOMY, LEFT ELBOW FX SURGERY-no hardware., COLONOSCOPY, left knee arthroscopy Past Anesthesia/Blood Transfusion Reactions: No Reported Reaction Additional Past Anesthesia/Blood Transfusion Reaction / Comment(s): no blood transfusion Past Psychological History: No Psychological Hx Reported Smoking Status: Never smoker Past Alcohol Use History: Rare Past Drug Use History: None Reported - Past Family History Mother Family Medical History: No Reported History <Beverley Munson - Last Filed: 05/02/24 11:05> General Exam <Beverley Munson - Last Filed: 05/02/24 11:05> Limitations: no limitations General appearance: alert, in no apparent distress Head exam: Present: atraumatic, normocephalic, normal inspection Respiratory exam: Present: normal lung sounds bilaterally. Absent: respiratory distress, wheezes, rales, rhonchi, stridor Cardiovascular Exam: Present: regular rate, normal rhythm, normal heart sounds. Absent: systolic murmur, diastolic murmur, rubs, gallop, clicks Extremities exam: Present: other (Swelling and deformity to the left wrist with ecchymosis and tenderness. 2+ radial pulses.) Neurological exam: Present: alert, oriented X3, CN II-XII intact Psychiatric exam: Present: normal affect, normal mood <Darcy Holt - Last Filed: 05/02/24 16:44> - General Exam Comments Initial Comments: Visual Physical Exam General: Well-appearing, nontoxic, no acute distress. Head: Normocephalic, atraumatic Eyes: PERRLA, EOMI ENT: Airway patent Chest: Nonlabored breathing Skin: No visual rash, normal skin tone Neuro: Alert and oriented 3 Musculoskeletal: No gross abnormalities (Beverley Munson) Course Vital Signs 05/02/24 05/02/24 12:29 15:19 Temperature 98 F Pulse Rate 78 77 Respiratory 18 18 Rate Blood Pressure 154/93 154/84 O2 Sat by Pulse 98 97 Oximetry Procedures - Orthopedic Splinting/Casting Injury #1 Side: left Upper Extremity Injury Location: wrist Upper Extremity Immobilizer: sugar tong splint <Darcy Holt - Last Filed: 05/02/24 16:44> Medical Decision Making <Beverley Munson - Last Filed: 05/02/24 11:05> - Radiology Data Radiology results: report reviewed, image reviewed <Darcy Holt - Last Filed: 05/02/24 16:44> - Medical Decision Making I completed the quick note portion of this chart signed Beverley Munson PA-C (Beverley Munson) This is a 64-year-old female who presents to the emergency department for a left wrist injury. Was pt. sent in by a medical professional or institution? @ -No Did you speak to anyone other than the patient for history? @ -No Did you review nursing and triage notes? @ -Yes, and I agree, it is accurate with regards to the patient's symptoms. Were old charts reviewed? @ -No Differential Diagnosis? @ -Differential Musculoskeletal Muscular strain, contusion, ligament sprain, fracture, arthritis, septic arthritis, bursitis, cellulitis, muscle spasm, nerve compression, DVT, arterial occlusion, herpes zoster, electrolyte abnormality, tumor.... This is not meant to be in all inclusive list EKG interpreted by me (3pts min.)? @ -Not obtained X-rays interpreted by me (1pt min.)? @ -X-ray of the left wrist obtained. My interpretation identifies a distal radius fracture. CT interpreted by me (1pt min.)? @ -Not obtained U/S interpreted by me (1pt. min.)? @ -Not obtained What testing was considered but not performed? (CT, X-rays, U/S, labs)? Why? @ -None What meds were considered but not given? Why? @ -None Did you discuss the management of the patient with other professionals? @ -No Did you reconcile home meds? @ -No Was smoking cessation discussed for >3mins.? @ -No Was critical care preformed (if so, how long)? @ -No Were there social determinants of health that impacted care today? How? (Homelessness, low income, unemployed, alcoholism, drug addiction, transportation, low edu. Level, literacy, decrease access to med. care, nursing home, rehab)? @ -No Was there de-escalation of care discussed even if they declined? (Discuss DNR or withdrawal of care, Hospice)? @ -No What co-morbidities impacted this encounter? (DM, HTN, Smoking, COPD, CAD, Cancer, CVA, Hep., AIDS, mental health diagnosis, sleep apnea, morbid obesity)? @ -Osteoarthritis Was patient admitted / discharged? @ -Discharged. X-ray of the left wrist obtained revealing a transverse fracture of the distal metaphyseal radius with some intra-articular extension. There is also suspected scapholunate dissociation. Pain managed in the e mergency department. She was put in a sugar-tong splint and given an arm sling. Prescription for ibuprofen and [place] provided. Information for orthopedic follow-up provided. She is advised to contact them Sunday morning for a follow- up appointment. Patient discharged home in stable condition. Case discussed with ED attending, Dr. Hodges. Return precautions reviewed in depth, the patient is instructed to return to the emergency department with any new, worsening, or concerning symptoms. Patient verbalized understanding. Undiagnosed new problem with uncertain prognosis? @ -None Drug Therapy requiring intensive monitoring for toxicity (Heparin, Nitro, Insulin, Cardizem)? @ -None Were any procedures done? @ -Left sugar-tong splint application Diagnosis/symptom? @ -Fall, left distal radius fracture Acute, or Chronic, or Acute on Chronic? @ -Acute Uncomplicated (without systemic symptoms) or Complicated (systemic symptoms)? @ -Uncomplicated Side effects of treatment? @ -None Exacerbation, Progression, or Severe Exacerbation] @ -Not applicable Poses a threat to life or bodily function? @ -Yes, will limit her ability to use the left arm for the meantime. (Darcy Holt) Disposition <Beverley Munson - Last Filed: 05/02/24 11:05> Is patient prescribed a controlled substance at d/c from ED?: Yes When asked, does pt state using other controlled substances?: No If prescribed controlled substance>3 days was MAPS reviewed?: Prescribed <3 Days Time of Disposition: 15:38 <Darcy Holt - Last Filed: 05/02/24 16:44> Clinical Impression: Fall, Fracture of left distal radius, Scapho-lunate dissociation Disposition: HOME SELF-CARE Instructions (If sedation given, give patient instructions): Wrist Fracture in Adults (ED), Splint Care (ED) Additional Instructions: Return to the emergency department with any new, worsening, or concerning symptoms. Alternate with ibuprofen and Tylenol as needed for pain relief. Take the [place] sparingly when your pain is the most severe. Contact orthopedics listed below for follow-up appointment. Prescriptions: Ibuprofen [Motrin] 800 mg PO Q8H PRN #30 tab PRN Reason: Pain HYDROcodone/APAP 7.5-325MG [[place] 7.5-325] 1 tab PO Q6HR PRN 3 Days #12 tab PRN Reason: Pain Referrals: None,Stated [Primary Care Provider] - 1-2 days Jamal Mccoy MD [STAFF PHYSICIAN] - 1-2 days
[2024-05-02 12:32] VITALS: RESP 18; TEMP 98
--- NOTE | 2024-05-02 13:06 | XR ---
EXAMINATION TYPE: XR wrist complete LT DATE OF EXAM: 05/02/2024 12:46 PM COMPARISON: None. CLINICAL INDICATION: Female, 64 years old with history of left wrist injury, pain TECHNIQUE: 4 view(s) obtained. FINDINGS: There is a transverse fracture of the distal metaphyseal radius. This may be partially comminuted wit h extension towards the articular surface. Diffuse soft tissue swelling over the fracture site. There is widening of the scapholunate space. Scapholunate disassociation may be present. This can be confirmed with MRI. IMPRESSION: 1. Transverse fracture distal metaphyseal radius. 2. Some intra-articular extension from the distal radial fracture is present. 3. 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 [facility], , 05/02/2024 1:03 PM
[2024-05-02 15:24] VITALS: BP 154/84; PULSE 77
[2024-05-02] MEDS: KETOROLAC 15 MG/ML 1 ML VIAL IM STA (15:26)
[2024-05-02] MEDS: MORPHINE SULFATE 4 MG/ML SYRINGE IM STA (15:27)
== END 2024-05-02 15:54 | disposition home or self-care (01) ==
LOC: EC 10:50
DX: S52.592A Other fractures of lower end of left radius, initial encounter for closed fracture (principal); S63.095A Other dislocation of left wrist and hand, initial encounter; M19.90 Unspecified osteoarthritis, unspecified site; W00.0XXA Fall on same level due to ice and snow, initial encounter; Y93.01 Activity, walking, marching and hiking
CPT/HCPCS: 73110; 99283; 96372; 29125; J2270; J1885

== ENCOUNTER → 2024-05-05 | Outpatient (CLI) | payer MEDICAID ==
--- NOTE | 2024-05-05 17:31 | CT ---
EXAMINATION TYPE: CT wrist LT wo con DATE OF EXAM: 05/05/2024 COMPARISON: Left wrist x-ray 3 days earlier CLINICAL INDICATION: Female, 64 years old with history of Left wrist; S52.572A OTH INTARTIC FRACTURE OF LOWE; [facility], Presurgical planning of left wrist CT DLP: 128.7 mGycm Automated exposure control for dose reduction was used. FINDINGS: Acute comminuted slightly displaced intra-articular fracture through the dorsal aspect of the distal radial meta-epiphysis is seen. No tiny ossific intra-articular fragments clearly identified. Fracture line extends to the dorsal and ulnar surface of the distal radius. No significant step-off is seen a t articular surface. Adjacent distal ulna is intact. Carpal joint spaces are maintained. Overlying ca st material is seen. Mild to moderate diffuse subcutaneous edema is present. IMPRESSION: ABOVE. [facility], , 05/05/2024 5:28 PM
== END | disposition home or self-care (01) ==
LOC: RADCTMAIN 16:51
PROVIDERS: ATTEND Orthopaedic Surgery
DX: Z01.818 Encounter for other preprocedural examination (principal); S52.572A Other intraarticular fracture of lower end of left radius, initial encounter for closed fracture

== ENCOUNTER → 2024-05-08 | Outpatient (CLI) | payer MEDICAID ==
--- NOTE | 2024-05-09 07:50 | MM ---
Reason for Exam: Screening (asymptomatic). Last screening mammogram was performed 12 month(s) ago. Patient History: Menarche at age 11. First Full-Term at age 28. Postmenopausal. Other cancer. Hormonal Contraceptives, starting at age 20 for 10 years. Risk Values: Jaymie 5 year model risk: 2.0%. NCI Lifetime model risk: 7.9%. Prior Study Comparison: 04/07/2022 Bilateral MG 3D screening mammo w/cad, [facility]. 04/14/2022 Left MG 3D work up w/cad , [facility]. 05/07/2023 Bilateral MG 3D screening mammo w/cad, [facility]. Tissue Density: The breasts are heterogeneously dense, which may obscure small masses. Findings: Analyzed By CAD. Right breast: There is no suspicious group of microcalcifications or new suspicious mass. Left breast: There is no suspicious group of microcalcifications or new suspicious mass. Overall Assessment: Negative, BI-RAD 1 Management: Screening Mammogram of both breasts in [address] [facility] will attempt to contact patient to return for supplemental views and ultrasound if indicated. Patient should continue monthly self-breast exams. A clinical breast exam by your physician is recommended on an annual basis. This exam should not preclude additional follow-up of suspicious palpable abnormalities. Note on Jaymie scores and lifetime risk: 1. A Jaymie score greater than 3% is considered moderate risk. If this is the case, consider specialist referral to assess eligibility for a risk reducing agent. 2. If overall lifetime risk for the development of breast cancer is 20% or higher, the patient may qualify for future screening with alternating mammogram and breast MRI. [facility], , 05/09/2024 7:46 AM. Electronically signed and approved by: Neymar Cortez DO
--- NOTE | 2024-05-12 07:43 | BD ---
EXAMINATION TYPE: Axial Bone Density DATE OF EXAM: 05/08/2024 CLINICAL HISTORY: 64 years old Female. ICD-10 CODE: Z78.0 POST ALICIA , Additional History: Height: 65 Weight: 164.7 FRAX RISK QUESTIONS: Alcohol (3 or more units per day): no Family History (Parent hip fracture): mother Glucocorticoids (More than 3mos): no (Ex: prednisone, prednisolone, methylprednisolone, dexamethasone, and hydrocortisone). History of Fracture in Adulthood: lt wrist, elbow Secondary Osteoporosis: 1. Type 1 Diabetes: no 2. Hyperthyroidism: no 3. Menopause before 45: no 4. Malnutrition: no 5. Chronic liver disease: no Rheumatoid Arthritis: no Current Tobacco Use: no RISK FACTORS HISTORY OF: Hip Fracture (Right/Left): no Spine Fracture:no History of Wrist Fracture: lt wrist When: 2024 Surgery to Spine/Hip(right/left)/Wrist (right/left): no MEDICATIONS: Thyroid Medications: no Osteoporosis Medications: no EXAM MEASUREMENTS: Bone mineral densitometry was performed using the [employer] System. Bone mineral density as measured about the Lumbar spine is: ----- L1-L4(G/cm2): 0.967 T Score Values are as follows: ----- L1: -1.7 ----- L2: -2.1 ----- L3: -2.3 ----- L4: -1.1 ----- L1-L4: -1.8 Z Score Values are as follows: ----- L1: -0.5 ----- L2: -0.9 ----- L3: -1.2 ----- L4: 0.1 ----- L1-L4: -0.6 Bone mineral density has: decreased -11.4 % since study of: 02/18/2020 Bone mineral density about the R hip (g/cm2): 0.753 Bone mineral density about the L hip (g/cm2): 0.690 T Score values are as follows: -----R Neck: -2.2 -----L Neck: -2.1 -----R Total: -2.0 -----L Total: -2.5 Z Score values are as follows: -----R Neck: -1.0 -----L Neck: -0.9 -----R Total: -1.1 -----L Total: -1.6 Bone mineral density has: decreased -8.3study of 02/18/2020 FRAX%s: The graph provided illustrates a 21.1hance for a major osteoporotic fx and a 2.0chance for th e hips probability for fx in 10 years time. IMPRESSION: Osteopenia (T Score between -2.5 and -1). There is slightly increased risk of fracture and the patient may be considered for treatment. Re-Screen 2-5 years. NOTE: T-SCORE=SD OF THE YOUNG ADULT MEAN. [facility], , 05/12/2024 7:41 AM
== END | disposition home or self-care (01) ==
LOC: RADMAMWWP 15:35
PROVIDERS: ATTEND Obstetrics & Gynecology
DX: Z12.31 Encounter for screening mammogram for malignant neoplasm of breast (principal); R92.333 Mammographic heterogeneous density, bilateral breasts; M85.89 Other specified disorders of bone density and structure, multiple sites; Z78.0 Asymptomatic menopausal state
CPT/HCPCS: 77063; 77067; 77080